=== PATIENT | female | born 1985 | race Caucasian/White ===

== ENCOUNTER 2017-07-30 12:09 | Emergency (ER) | payer MEDICAID, OTHER, SELFPAY ==
[~2017-07-30] VITALS: Ht 160 cm; Wt 115.0 kg
[2017-07-30] MEDS ORDERED: SODIUM CHLORIDE 0.9% 1,000 ML IV ONE (12:23)
[2017-07-30] MEDS ORDERED: SODIUM CHLORIDE 0.9% 1,000ML IVBOLUS ONE ×2 (12:30→14:30)
[2017-07-30] MEDS ORDERED: ONDANSETRON 2MG/ML, 2ML IVPush ONE (12:30)
[2017-07-30] MEDS ORDERED: FAMOTIDINE 20 MG/2 ML IVP ONE (12:30)
[2017-07-30] MEDS ORDERED: PLEASE ENTER WEIGHT MC SCH (13:00)
[2017-07-30 13:18] LABS: HEMATOCRIT 50.4 % (34.6-47.8); HEMOGLOBIN 17.4 g/dL (11.7-16.4); WHITE BLOOD COUNT 9.2 x10^3/uL (3.4-10)
[2017-07-30 13:31] LABS: BLOOD UREA NITROGEN 5 mg/dL (7-18)
[2017-07-30 13:35] LABS: ASPARTATE AMINO TRANSFERASE 16 U/L (15-37)
[2017-07-30] MEDS ORDERED: FAMOTIDINE 20 MG/2 ML ONE ×2 (14:28→14:46)
[2017-07-30] MEDS ORDERED: ONDANSETRON 2MG/ML, 2ML ONE ×2 (14:28→14:46)
[2017-07-30] MEDS ORDERED: KETOROLAC 30 MG/1 ML IVPush ONE (14:30)
[2017-07-30] MEDS ORDERED: KETOROLAC 30 MG/1 ML ONE ×2 (14:46→15:46)
[2017-07-30] MEDS ORDERED: METOCLOPRAMIDE 5 MG/ML, 2ML IVPush ONE (17:00)
[2017-07-30] MEDS ORDERED: METOCLOPRAMIDE 5 MG/ML, 2ML ONE (17:13)
[2017-07-30 17:25] VITALS: BP 130/76
== END 2017-07-30 17:37 | disposition home or self-care (01) ==
LOC: ED 17:31
DX: R51 Headache (principal); R11.2 Nausea with vomiting, unspecified; R19.7 Diarrhea, unspecified
CPT/HCPCS: 36415; 70450; 71010; 80053; 83690; 85025; 93005; 96361; 96374; 96375; 99285; J1885; J2405; J2765; J7030; S0028

== ENCOUNTER 2019-10-02 11:04 | Emergency (ER) | payer MEDICAID ==
[~2019-10-02] VITALS: Ht 160 cm; Wt 157.6 kg
[2019-10-02] MEDS ORDERED: ALBUTEROL/IPRATROPIUM 2.5MG/0.5MG, 3 ML NPPB ONE ×2 (11:30→13:00)
[2019-10-02] MEDS ORDERED: ALBUTEROL/IPRATROPIUM 2.5MG/0.5MG, 3 ML ONE ×2 (11:40→13:10)
[2019-10-02 11:47] LABS: BASOPHILS # (AUTO) 0.01 x10^3/uL (0-0.1); BASOPHILS % (AUTO) 0 % (0-1); EOSINOPHILS # (AUTO) 0.13 x10^3/uL (0-0.4); EOSINOPHILS % (AUTO) 2 % (1-7); LYMPHOCYTES # (AUTO) 1.25 x10^3/uL (1-3.4); LYMPHOCYTES % (AUTO) 19 % (22-44); MD NO; MEAN CORPUSCULAR HEMOGLOBIN 31.1 pg (27.0-34.8); MEAN CORPUSCULAR HGB CONC 33.4 g/dL (32.4-35.8); MEAN CORPUSCULAR VOLUME 93.3 fL (80-100); MEAN PLATELET VOLUME 8.3 fL (7.4-10.4); MONOCYTES # (AUTO) 0.31 x10^3/uL (0.2-0.8); MONOCYTES % (AUTO) 5 % (2-9); NEUTROPHILS % (AUTO) 74 % (42-75); PLATELET COUNT 187 x10^3/uL (130-400); RED CELL DISTRIBUTION WIDTH 13.6 % (9.6-15.2)
--- NOTE | 2019-10-02 11:49 | NUR ---
THIS IS A 34 YO FEMALE WHO PRESENTS TO THE ER C/O INCREASING SOB OVER THE LAST FEW DAYS. PT AO X 4. SKIN PWD. REPS EVEN AND UNLABORED. PT ABLE TO SPEAK IN FULL 5-7 WORD SENTENCES W/O DIFFICULTY. RT AT BEDSIDE FOR TREATMENT AT THIS TIME. SINGIFICANT OTHER AT BEDSIDE. CALL LIGHT WITHIN REACH. WILL CONT TO MONITOR PT.
[2019-10-02 11:58] LABS: ALBUMIN 3.1 g/dL (3.4-5.0); ANION GAP 6 mmol/L (5-15); CALCIUM 8.6 mg/dL (8.5-10.1); CHLORIDE 101 mmol/L (98-107); CREATININE 0.79 mg/dL (0.55-1.02)
[2019-10-02] MEDS ORDERED: SUMA25TA3 PO (12:02)
--- NOTE | 2019-10-02 12:21 | NUR ---
PT TO IMAGING VIA [employer] AT THIS TIME.
--- NOTE | 2019-10-02 13:30 | NUR ---
PT CURRENTLY RESTING ON GURNEY. NAD NOTED. SKIN PWD. RESP EVEN AND UNLABORED. PT AWARE THAT WE ARE WAITING FOR 2ND BREATHING TRX. PT ABLE TO SPEAK IN FULL 5-7 WORD SENTENCES. SIGNIFICANT OTHER AT BEDSIDE. CALL LIGHT WITHIN REACH. WILL CONT TO MONITOR PT.
--- NOTE | 2019-10-02 14:30 | NUR ---
PT STEADY UPON AMBULATION. PT MAINTAINED SPO2 OF 91 WHILE AMBULATING. PER PT, "I'M ALWAYS IN THE LOW 90'S". JUDD PASCUAL AT BEDSIDE FOR RECHECK/EXPLANATION OF RESULTS. PT VERBALIZES UNDERSTANDING. CALL LIGHT WITHIN REACH. WILL CONT TO MONITOR PT.
[2019-10-02 14:39] VITALS: BP 117/86
== END 2019-10-02 14:41 | disposition home or self-care (01) ==
LOC: ED 12:58
DX: J98.01 Acute bronchospasm (principal)
CPT/HCPCS: 36415; 71046; 80048; 82040; 85025; 93005; 94640; 99284; J7512; J7620